=== PATIENT | female | born 1975 | race Two or more races ===

== ENCOUNTER 2025-03-10 18:07 | Emergency (ER) | payer OTHER ==
[~2025-03-10] VITALS: Ht 175.3 cm; Wt 80.3 kg
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
[2025-03-10] MEDS ORDERED: AMLO1TAB22 PO (19:47)
[2025-03-10 22:38] VITALS: BP 194/96; PULSE 60; RESP 16; TEMP 97.8; O2SAT 98
[2025-03-10] MEDS: NITROGLYCERIN 0.4 MG SL TAB SL ONE (22:39)
== END 2025-03-10 23:36 | disposition home or self-care (01) ==
LOC: ER 18:07
DX: S09.8XXA Other specified injuries of head, initial encounter (principal); I10 Essential (primary) hypertension; Z79.899 Other long term (current) drug therapy; V43.52XA Car driver injured in collision with other type car in traffic accident, initial encounter; Y93.89 Activity, other specified; Y92.488 Other paved roadways as the place of occurrence of the external cause; Y99.8 Other external cause status
CPT/HCPCS: 70450